=== PATIENT | female | born 1995 | race African-American/Black ===

== ENCOUNTER 2017-11-07 12:59 | Inpatient (IN) | payer OTHER ==
[~2017-11-07] VITALS: Ht 170.2 cm; Wt 71.2 kg
[2017-11-07] MEDS ORDERED: BUTORPHANOL TARTRATE 2 MG/ML VIAL IV NR (13:15)
[2017-11-07] MEDS ORDERED: LIDOCAINE HCL/PF 1% 10 MG/ML 30ML VIAL INFIL NR (13:15)
[2017-11-07] MEDS ORDERED: LIDOCAINE HCL/PF 1% 10 MG/ML 30ML VIAL ONE (13:21)
[2017-11-07] MEDS ORDERED: DEXT 5%/LR + PITOCIN 20UNITS/L 1,000 ML IV ONE (13:22)
[2017-11-07] MEDS ORDERED: BUTORPHANOL TARTRATE 2 MG/ML VIAL ONE (13:29)
[2017-11-07] MEDS ORDERED: DEXT 5%/LR + PITOCIN 20UNITS/L 1,000 ML IV SCH (13:47)
[2017-11-07] MEDS ORDERED: RHO(D) IMMUNE GLOBULIN 300 MCG/SYR IM PRN (14:00)
[2017-11-07] MEDS ORDERED: BISACODYL 10MG SUPP PR PRN (14:00)
[2017-11-07] MEDS ORDERED: HEMORRHOIDAL SUPP PR PRN (14:00)
[2017-11-07] MEDS ORDERED: ACETAMINOPHEN WITH CODEINE 300/30MG TABLET PO PRN ×2 (14:00)
[2017-11-07] MEDS ORDERED: DIPHENHYDRAMINE 25MG CAPSULE PO PRN (14:00)
[2017-11-07] MEDS ORDERED: LANOLIN OINT 0.25 GM TUBE TOP PRN (14:00)
[2017-11-07] MEDS ORDERED: BENZOCAINE/LANOLIN/ALOE VERA SPRAY TOP PRN (14:00)
[2017-11-07] MEDS ORDERED: GLYCERIN/WITCH HAZEL LEAF MEDICATED PAD TOP PRN (14:00)
[2017-11-07 15:35] LABS: BASOPHILS % 0.2 % (0.0-2.0); EOSINOPHILS % 0.7 % (0.0-5.0); HEMATOCRIT. 37.1 % (36.0-48.0); HEMOGLOBIN. 12.4 g/dL (12.0-16.0); LYMPHOCYTES % 14.6 % (20.0-50.0); MEAN CORPUSCULAR HEMOGLOBIN 30.9 pg (28.0-32.0); MEAN CORPUSCULAR VOLUME 92.8 fL (81.0-99.0); MEAN PLATELET VOLUME 10.4 fl (7.4-10.4); MONOCYTES % 4.7 % (2.0-8.0); NEUTROPHILS % 79.8 % (40.0-76.0); PLATELET 259 x1000/uL (130-400); RED CELL DISTRIBUTION WIDTH 13.3 % (11.6-14.6)
[2017-11-07 15:40] VITALS: BP 114/71
[2017-11-07 16:10] VITALS: BP 112/71
[2017-11-07 18:13] LABS: CLARITY URINE CLEAR (CLEAR); COLOR URINE RED (YELLOW); KETONES URINE NEGATIVE (NEGATIVE); LEUKOCYTE ESTERASE URINE TRACE (NEGATIVE); NITRITE URINE NEGATIVE (NEGATIVE); OCCULT BLOOD URINE 3+ (NEGATIVE); PH URINE 7.5 (4.5-8.0); PROTEIN URINE 1+ (NEGATIVE); SPECIFIC GRAVITY URINE 1.007 (1.005-1.030); UROBILINOGEN URINE 0.2 E.U./dL (0.2-1.0)
[2017-11-07 18:21] LABS: INR 0.9; PARTIAL THROMBOPLASTIN TIME 28.6 sec (23.4-31.0); PROTHROMBIN TIME 9.8 sec (9.4-11.6)
[2017-11-07 18:34] LABS: *AMPHETAMINES SCREEN URINE NEGATIVE (NEGATIVE); *BARBITURATES SCREEN URINE NEGATIVE (NEGATIVE); *BENZODIAZEPINES SCREEN URINE NEGATIVE (NEGATIVE); *COCAINE SCREEN URINE NEGATIVE (NEGATIVE)
[2017-11-07 18:35] LABS: CANNABINOID URINE SCREEN NEGATIVE (NEGATIVE); METHADONE URINE SCREEN NEGATIVE (NEGATIVE); OPIATES URINE SCREEN NEGATIVE (NEGATIVE); PHENCYCLIDINE URINE SCREEN NEGATIVE (NEGATIVE)
[2017-11-07 18:55] LABS: RUBELLA IGG 83.9 IU/mL (4.99-10)
[2017-11-07 18:56] LABS: HEPATITIS B SURFACE ANTIGEN NEGATIVE
[2017-11-07] MEDS: DOCUSATE SODIUM 100MG CAPSULE PO SCH (21:15)
[2017-11-07 22:00] VITALS: BP 118/70
[2017-11-08 06:00] VITALS: BP 112/72
[2017-11-08 07:53] VITALS: BP 105/65
[2017-11-08] MEDS: IBUPROFEN 400MG TABLET PO PRN ×2 (08:17→17:42)
[2017-11-08] MEDS: PRENATAL VIT/FE FUMARATE/FA TABLET PO SCH (08:17)
[2017-11-08] MEDS: FERROUS SULFATE 325MG TABLET PO SCH ×2 (13:09→17:41)
[2017-11-08 16:14] VITALS: BP 115/67
[2017-11-08 17:45] LABS: BASOPHILS % 0.2 % (0.0-2.0); EOSINOPHILS % 2.3 % (0.0-5.0); HEMATOCRIT. 32.8 % (36.0-48.0); HEMOGLOBIN. 11.4 g/dL (12.0-16.0); LYMPHOCYTES % 20.5 % (20.0-50.0); MEAN CORPUSCULAR HEMOGLOBIN 31.9 pg (28.0-32.0); MEAN PLATELET VOLUME 10.6 fl (7.4-10.4); MONOCYTES % 8.7 % (2.0-8.0); NEUTROPHILS % 68.3 % (40.0-76.0); PLATELET 241 x1000/uL (130-400); RED BLOOD CELL COUNT 3.56 mill/uL (4.2-5.4); RED CELL DISTRIBUTION WIDTH 13.5 % (11.6-14.6)
[2017-11-08] MEDS: DOCUSATE SODIUM 100MG CAPSULE PO SCH (20:53)
[2017-11-08 22:00] VITALS: BP 112/71
[2017-11-09 06:00] VITALS: BP 108/64
[2017-11-09] MEDS: IBUPROFEN 400MG TABLET PO PRN (06:00)
[2017-11-09 06:11] VITALS: BP 106/64
[2017-11-09 08:37] VITALS: BP 111/64
[2017-11-09] MEDS: PRENATAL VIT/FE FUMARATE/FA TABLET PO SCH (09:08)
[2017-11-09] MEDS: FERROUS SULFATE 325MG TABLET PO SCH (09:09)
== END 2017-11-09 11:30 | disposition home or self-care (01) | DRG 775 ==
LOC: L&D 12:59 → OBSVTOIN 13:14 → 7EST PP/OB 16:40
PROVIDERS: ADMIT Specialist; ATTEND Specialist
PROC: 10E0XZZ Delivery of Products of Conception, External Approach (ICD-10-PCS; principal; 2017-11-08)
PROC: 0W8NXZZ Division of Female Perineum, External Approach (ICD-10-PCS; 2017-11-08)
DX: O77.0 Labor and delivery complicated by meconium in amniotic fluid (principal); Z37.0 Single live birth; Z3A.40 40 weeks gestation of pregnancy
CPT/HCPCS: 36415; 80305; 81003; 85025; 85610; 85730; 86592; 86703; 86762; 86850; 86870; 86880; 86900; 86905; 86906; 86971; 87340; G0378; J0595; J2590; J3490; J7120